=== PATIENT | female | born 1995 | race Caucasian/White ===

== ENCOUNTER → 2017-09-25 | Outpatient (CLI) | payer OTHER ==
--- NOTE | 2017-09-25 11:24 | DIAGNOSTIC IMAGING REPORT ---
L WRIST MIN 3 VIEWS ROUTINE CLINICAL HISTORY: Follow up left wrist fracture. COMPARISON: None FINDINGS: Carpal bones are intact. Note is made of an incompletely healed transverse fracture of the distal metaphysis of the left radius. Fracture is minimally impacted and displaced. There may be a nondisplaced vertical component. No distal left ulnar fracture is noted. IMPRESSION: Partially healed minimally impacted, minimally displaced transverse distal left radial fracture. Electronically signed by: Cal Veliz M.D. 09/25/2017 11:23 AM Dictated Date/Time: 09/25/2017 11:22 AM
== END | disposition home or self-care (01) ==
LOC: C.RDSM 11:08
PROVIDERS: ATTEND Family Medicine
DX: S52.592A Other fractures of lower end of left radius, initial encounter for closed fracture (principal); X58.XXXA Exposure to other specified factors, initial encounter

== ENCOUNTER → 2017-10-26 | Outpatient (CLI) | payer OTHER ==
--- NOTE | 2017-10-26 09:46 | DIAGNOSTIC IMAGING REPORT ---
LEFT WRIST 3 VIEWS CLINICAL HISTORY: Follow-up wrist fracture. FINDINGS: 3 views of the left wrist are compared to study dated 09/25/2017. The skeletal structures are well mineralized. There has been continued healing and remodeling of an impacted distal radial fracture. There is a thin band of sclerosis at the fracture site. No significant fracture lucency remains. No new fracture is seen. The joint spaces of the wrist are preserved. Overlying soft tissue edema has almost completely resolved. IMPRESSION: There has been continued healing and remodeling of an impacted distal radial fracture as compared to 09/25/2017. Electronically signed by: Dionicio Juárez M.D. 10/26/2017 9:44 AM Dictated Date/Time: 10/26/2017 9:43 AM
== END | disposition home or self-care (01) ==
LOC: C.RDSM 09:02
PROVIDERS: ATTEND Family Medicine
DX: S52.592A Other fractures of lower end of left radius, initial encounter for closed fracture (principal); X58.XXXA Exposure to other specified factors, initial encounter